=== PATIENT | female | born 1940 | race African-American/Black ===

== ENCOUNTER 2017-08-24 05:03 | Inpatient (IN) | payer OTHER, MEDICARE ==
--- NOTE | 2017-08-24 05:10 | PDOC ---
History of Present Illness - General Chief Complaint: Pain Stated Complaint: PAIN Time Seen by Provider: 08/24/17 05:10 - History of Present Illness Initial Comments: 08/24/17 05:29 Ms. Betts is a 76 yo female w/ pmh of HTN, HL, CAD, DM, CVA with residual left sided weakness, C1-C2 meningioma who presents to the ED with left sided neck pain she reports extends up to the left side of her head. She reports it does not feel like a headache and that she has had similar pain before that was relieved with massage although she reports this is worse. Ms. Betts reports she woke up from sleep with this pain feeling "like she was going to ," although she reports the pain has mostly resolved now. The patient denies chest pain, shortness of breath, headache and dizziness. Denies fever, chills, nausea, vomit, diarrhea and constipation. Denies dysuria, frequency, urgency and hematuria. Allergies: Penicillins, shellfish Past History - Past Medical History Allergies/Adverse Reactions: Allergies Allergy/AdvReac Type Severity Reaction Status Date / Time Penicillins Allergy Swelling Verified 08/24/17 05:06 shellfish derived Allergy Verified 08/24/17 05:06 Home Medications: Ambulatory Orders Amlodipine Besylate [Norvasc -] 10 mg PO DAILY 01/16/14 Aspirin [ASA -] 81 mg PO DAILY tab.chew 04/24/16 Carvedilol [Coreg -] 25 mg PO BID tablet 04/24/16 Ezetimibe [Zetia -] 10 mg PO DAILY tablet 04/24/16 Insulin (Levemir) [Levemir Vial] 30 units SQ ACBK #0 ml 04/24/16 Insulin Sliding Scale [Novolog Vial Sliding Scale -] 1 vial SQ ACHS units 04/24 Levothyroxine [Synthroid -] 125 mcg PO DAILY@0700 tablet 04/24/16 Pantoprazole Sodium [Protonix -] 40 mg PO DAILY tablet.ec 04/24/16 Valsartan [Diovan] 320 mg PO DAILY tablet 04/24/16 Anemia: No Asthma: No Cancer: No Cardiac Disorders: Yes (mi ; 2 stents) CVA: Yes (2001) COPD: No CHF: No Dementia: No Diabetes: Yes Dialysis: Yes GI Disorders: No Disorders: No HTN: Yes Hypercholesterolemia: Yes Liver Disease: No Seizures: No Thyroid Disease: Yes (thyroidectomy 2006) - Surgical History Abdominal Surgery: No Appendectomy: No Cardiac Surgery: Yes (stent placement 2009) Cholecystectomy: No Lung Surgery: No Neurologic Surgery: Yes (meningioma 2001) Orthopedic Surgery: No - Immunization History Immunization Up to Date: Yes - Suicide/Smoking/Psychosocial Hx Smoking History: Never smoked Have you smoked in the past 12 months: No Number of Cigarettes Smoked Daily: 0 Cigars Per Day: 0 Information on smoking cessation initiated: No Hx Alcohol Use: No Drug/Substance Use Hx: No Substance Use Type: None Hx Substance Use Treatment: No Review of Systems - Review of Systems Comments:: 08/24/17 05:33 GENERAL/CONSTITUTIONAL: No fever or chills. HEAD, EYES, EARS, NOSE AND THROAT: No change in vision. No ear pain or discharge. No sore throat. CARDIOVASCULAR: No chest pain or shortness of breath RESPIRATORY: No cough, wheezing, or hemoptysis. GASTROINTESTINAL: No nausea, vomiting, diarrhea or constipation. GENITOURINARY: No dysuria, frequency, or change in urination. MUSCULOSKELETAL: +Left sided neck pain she reports is made worse with her PT exercises. SKIN: No rash NEUROLOGIC: No headache, vertigo, loss of consciousness, or change in strength/ sensation. ENDOCRINE: No increased thirst. No abnormal weight change HEMATOLOGIC/LYMPHATIC: No anemia, easy bleeding, or history of blood clots. ALLERGIC/IMMUNOLOGIC: No hives or skin allergy. *Physical Exam - Vital Signs Last Vital Signs Temp Pulse Resp BP Pulse Ox 97.4 F L 68 18 142/67 98 08/24/17 05:06 08/24/17 05:06 08/24/17 05:06 08/24/17 05:06 08/24/17 05:06 - Physical Exam Comments: 08/24/17 05:35 GENERAL: Awake, alert, and fully oriented, in no acute distress HEAD: No signs of trauma, normocephalic, atraumatic EYES: PERRLA, EOMI, sclera anicteric, conjunctiva clear ENT: Auricles normal inspection, hearing grossly normal, nares patent, oropharynx clear without exudates. Moist mucosa NECK: Normal ROM, no TTP, supple, no lymphadenopathy, JVD, or masses LUNGS: No distress, speaks full sentences, clear to auscultation bilaterally HEART: Regular rate and rhythm, normal S1 and S2, no murmurs, rubs or gallops, peripheral pulses normal and equal bilaterally. ABDOMEN: Soft, nontender, normoactive bowel sounds. No guarding, no rebound. No masses EXTREMITIES: Normal inspection, Normal range of motion, no edema. No clubbing or cyanosis. NEUROLOGICAL: Cranial nerves II through XII grossly intact. Normal speech, no focal sensorimotor deficits SKIN: Warm, Dry, normal turgor, no rashes or lesions noted. ED Treatment Course - LABORATORY CBC & Chemistry Diagram: 08/25/17 07:51 08/25/17 07:51 Medical Decision Making - Medical Decision Making 08/24/17 06:01 Ms. Betts is a 76 yo female w/ pmh as described who presents for acute exacerbation of left neck pain with radiation to head/scalp. With meningioma history CT head/neck ordered for further evaluation. 08/24/17 06:53 Patient signed out to Dr. Marrero for further evaluation. *DC/Admit/Observation/Transfer Diagnosis at time of Disposition: Neck pain, Meningioma - Discharge Dispostion Condition at time of disposition: Guarded Admit: Yes - Referrals - Patient Instructions - Post Discharge Activity
[2017-08-24] MEDS ORDERED: KETOROLAC TROMETHAMINE 60 MG/2 ML VIAL IM ONE (05:43)
[2017-08-24] MEDS ORDERED: KETOROLAC TROMETHAMINE 60 MG/2 ML VIAL ONE (05:51)
--- NOTE | 2017-08-24 06:44 | PDOC ---
Attending Attestation - Resident Resident Name: Crow Zimmerman - ED Attending Attestation I have performed the following: I have examined & evaluated the patient, The case was reviewed & discussed with the resident, I agree w/resident's findings & plan - HPI HPI: 08/24/17 06:43 Pt comes with headache and neck pain. She is anxious and wants to make sure she is not having any pathology. - Physicial Exam PE: 08/25/17 02:58 Agree with resident exam - Medical Decision Making 08/25/17 02:58 Pt's exam and head CT are normal. She will be discharged.
--- NOTE | 2017-08-24 07:06 | PDOC ---
*Physical Exam - Vital Signs Last Vital Signs Temp Pulse Resp BP Pulse Ox 97.4 F L 68 18 142/67 98 08/24/17 05:06 08/24/17 05:06 08/24/17 05:06 08/24/17 05:06 08/24/17 05:06 08/24/17 07:05 76 YOF with h/o CVA and left sided residual weakness, known C1-C2 meningioma with attempted resection, p/w neck pain and expressed concern over the meningioma possibly being the cause. CT head/neck ordered, dispo pending result. ED Treatment Course - Medications Given in the ED: ED Medications Discontinued Medications Generic Name Dose Route Start Last Admin Trade Name Freq PRN Reason Stop Dose Admin Ketorolac Tromethamine 60 mg 08/24/17 05:43 08/24/17 05:58 Toradol Injection - IM 08/24/17 05:44 60 mg ONCE ONE Administration Medical Decision Making - Medical Decision Making 08/24/17 09:[address] Moore who will admit the patient, Med/Surg obs. Requests consult with Dr. Vaca (patient's neurosurgeon). Call placed to Dr. Vaca. Admission order placed. 08/24/17 10:[address] Vaca who agrees to see the patient while admitted. *DC/Admit/Observation/Transfer Diagnosis at time of Disposition: Neck pain, Meningioma - Discharge Dispostion Condition at time of disposition: Guarded Admit: Yes - Referrals Referrals: Tito Moore MD [Primary Care Provider] - - Patient Instructions - Post Discharge Activity
--- NOTE | 2017-08-24 10:23 | PN ---
Progress Note (short form) - Note Progress Note: NEUROSURGERY CONSULT DICTATED Pt well known to me at bedside in ED Asked by Dr Moore to see patient S/p laminectomies and debulking, followed by reattempted re-resection for recurrence years ago. Dense calcified adherent tumor precluded re-attempted resection. S/p post-op XRT. Also L parietal parafalcine meningioma s/p SRS. C/o 9 hrs h/o increasing L neck/posterior head/shoulder pain; pain better s/p meds Chronic L hemiparesis PE: AF, VSS HEENT- NC/AT; Neck- supple (improved ROM since meds); mild tenderness L paraspinal region and trapezius; Cor- RR; Lungs- CTA; Abd- benign; Ext- no sign of DVT, L hand clawed (chronic) CN- intact; Motor- R side 5/5 L shoulder 2-3, L arm 3-4-; L hand 3; L IP 3/5; distal L LE 4; Sensation- intact LT except decreased L UE; DTR- hyporeflexia, no long tract sign Head CT- calcified L parafalcine parietal meningioma; no significant edema C spine CT- laminectomy defect C1-3; L ant C1-2 calcified meningioma Likely exacerbation of symptoms from calcified residual/recurrent L C1-2 anterior meningioma No significant changes c/w prior C spine and Brain MRI frmo 12/2016 Neurontin 100 mg tid for neuropathic pain Mobilize DVT prophylaxis Short pulse of oral medrol 4 mg qid might help with symptoms though IDDM makes such regimen more problematic Above d/w patient and
[2017-08-24] MEDS: CARVEDILOL 25 MG TABLET (FP) PO SCH ×2 (10:28→21:46)
[2017-08-24] MEDS: ASPIRIN 81 MG CHEWABLE TABLETS PO SCH (10:28)
[2017-08-24] MEDS: amLODIPine BESYLATE 10 MG TABLET (FP) PO SCH (10:28)
[2017-08-24] MEDS: VALSARTAN 160 MG TABLET (UD) PO SCH (10:28)
[2017-08-24] MEDS: PANTOPRAZOLE 40 MG TABLET (FP) PO SCH (10:28)
[2017-08-24] MEDS: EZETIMIBE 10 MG TABLET (FP) PO SCH (10:29)
[2017-08-24] MEDS ORDERED: INSULIN SLIDING SCALE (NOVOLOG) 1 VIAL SQ SCH ×2 (11:00→22:00)
[2017-08-24] MEDS ORDERED: GABAPENTIN 100 MG CAPSULE (FP) ONE (14:35)
[2017-08-24] MEDS: GABAPENTIN 100 MG CAPSULE (FP) PO SCH ×2 (14:35→21:46)
[2017-08-24 15:56] VITALS: BMI 33.7
[2017-08-24] MEDS ORDERED: traMADol HCL 50 MG TABLET PO PRN (16:56)
--- NOTE | 2017-08-24 17:03 | PN ---
Progress Note, Physician Chief Complaint: Neck pain History of Present Illness: 76 yrs old F with H/o HTN, T2DM on Insulin, Hypercholesterolemia, Left Parietal parafalacine meningioma s/p resection and dense calcified meningioma, CVA Left sided Hemiparesis UE > LE able to ambulate with a cane present to Ed with sudden onset severe Left sided neck pain 04/22, sharp aggraates with neck movement so came to Ed for evaluation, in the Ed revived pain medications CT haed and C spine CT- laminectomy defect C1-3; L ant C1-2 calcified meningioma patient pain improved after pain medications, considering - Current Medication List Current Medications: Active Medications Amlodipine Besylate (Norvasc -) 10 mg PO DAILY [facility] Last Admin: 08/24/17 10:28 Dose: 10 mg Aspirin (Asa -) 81 mg PO DAILY [facility] Last Admin: 08/24/17 10:28 Dose: 81 mg Carvedilol (Coreg -) 25 mg PO BID [facility] Last Admin: 08/24/17 10:28 Dose: 25 mg Ezetimibe (Zetia -) 10 mg PO DAILY [facility] Last Admin: 08/24/17 10:29 Dose: 10 mg Gabapentin (Neurontin -) 100 mg PO TID [facility] Last Admin: 08/24/17 14:35 Dose: 100 mg Insulin Aspart (Novolog Vial Sliding Scale -) 1 vial SQ ACHS [facility] PRN Reason: Protocol Last Admin: 08/24/17 11:36 Dose: Not Given Insulin Detemir (Levemir Vial) 30 units SQ ACBK [facility] Levothyroxine Sodium (Synthroid -) 125 mcg PO DAILY@0700 [facility] Pantoprazole Sodium (Protonix -) 40 mg PO DAILY [facility] Last Admin: 08/24/17 10:28 Dose: 40 mg Tramadol HCl (Ultram -) 25 mg PO Q8H PRN PRN Reason: PAIN LEVEL 6-10 Valsartan (Diovan -) 320 mg PO DAILY [facility] Last Admin: 08/24/17 10:28 Dose: 320 mg - Objective Vital Signs: Vital Signs Temperature 97.8 F 08/24/17 10:41 Pulse Rate 75 08/24/17 14:39 Respiratory Rate 16 08/24/17 14:39 Blood Pressure 124/59 08/24/17 14:39 O2 Sat by Pulse Oximetry (%) 98 08/24/17 14:39 Elderly F not in distress pain improved after medications HEENT: s/p craniotomy in the past, weakness UE> LE, Left facial droop at abse line.Mm moist, no anemia, PERRLA, EOMI NECK: supple mid pain on passive movement CHEST: CTA B/L CVS; S1S2 R no m/g/r ABD: No distention, non tender Bs + EXT: No brandt afeet, no calf tenderness COMPUTER INSTRUCTOR: AOX3 at base line Left sided,no facial droop Problem List - Problems (1) Neck pain Assessment/Plan: Most likely radiculopathy improved with pain meds evaluted by Neuro surgery consult Code(s): M54.2 - CERVICALGIA (2) T2DM (type 2 diabetes mellitus) Assessment/Plan: Hold Oral meds cont Lantus and correction dose insulin, Daibetic Diet F/U HbA1C level Code(s): E11.9 - TYPE 2 DIABETES MELLITUS WITHOUT COMPLICATIONS (3) Hypertensive cardiovascular disease Assessment/Plan: Cont current BP meds BP is well controlled Code(s): I11.9 - HYPERTENSIVE HEART DISEASE WITHOUT HEART FAILURE Qualifiers: Heart failure presence: without heart failure Qualified Code(s): I11.9 - Hypertensive heart disease without heart failure (4) Meningioma Assessment/Plan: H/O Meningiom s/p resection F/U Neuro Surgery recommendations. Code(s): D32.9 - BENIGN NEOPLASM OF MENINGES, UNSPECIFIED (5) Hyperlipidemia associated with type 2 diabetes mellitus Assessment/Plan: Cont current therapy F/U Lipid panel and TSH Code(s): E11.69 - TYPE 2 DIABETES MELLITUS WITH OTHER SPECIFIED COMPLICATION; E78.5 - HYPERLIPIDEMIA, UNSPECIFIED
--- NOTE | 2017-08-24 17:44 | CONS ---
DATE OF CONSULTATION: 08/24/2017 REQUESTING PHYSICIAN: Tito Moore MD BOWLING BALL MOLDER: Hussein Calvillo MD CHIEF COMPLAINT: Increasing left neck and head and shoulder pain. HISTORY OF PRESENT ILLNESS: The patient is a 76-year-old right-handed female with history of C1-2 anterior calcified meningioma and left parietal parafalcine meningioma, hypertension, coronary artery disease, diabetes, and cerebrovascular disease, with residual left hemiparesis, who presented with increasing left-sided neck pain since about 1 o'clock this morning. The pain radiates up to the head and down to her left shoulder and trapezius. She has had pain similar previously, but the pain is worse since earlier this morning. She denies increasing weakness or numbness even though she has chronic numbness in left arm and chronic weakness in her left arm and leg. She has no nausea or vomiting. She denies chest pain or shortness of breath or increasing edema in lower extremities. Her past medical history is significant for diabetes, coronary artery disease, hypertension, hypercholesterolemia, cerebrovascular disease, left C1- anterior calcified meningioma and left parietal parafalcine meningioma. Medications include Norvasc, baby aspirin, Coreg, Zetia, Levemir, Synthroid, Protonix, and Diovan. Allergies to PENICILLIN and SHELLFISH. SOCIAL HISTORY: She does not smoke or drink. 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 She does not smoke or drink. Review of systems is otherwise negative for other major constitutional, head and neck, cardiovascular, pulmonary, gastrointestinal, genitourinary, endocrinological, neurological, or psychological problem except for the above. PHYSICAL EXAMINATION: Vital Signs: She is afebrile and the vital signs are stable. General: She is reasonably comfortable in the stretcher in the emergency room. HEENT: Normocephalic, atraumatic. Anicteric. Neck: Supple. Posterior cervical incision is well healed. Range of motion improved compared to what was reported earlier. Coronary: Regular rhythm. Lungs: Clear bilaterally. Abdomen: Benign. Extremities: No obvious signs of DVT. She has some clawing of the left hand, which is chronic for at least 1 year also, if not longer. Neurologic: She is awake and alert, oriented x4. Cranial nerves examination is intact, 2-12. Motor examination shows 5/5 strength in the right side. Left deltoid and supraspinatus strength of 2 to 3/5 and biceps is 2 to 4-/5. Left hand intrinsic muscles are 3/5. Triceps is 4-/5. Left iliopsoas is 3/5 and the distal left lower extremity is 4/5. Sensory examination demonstrates diminished sensation in the left upper extremity in the non-dermatomal fashion. Deep tendon reflexes are hyporeflexive. There are no pathological lower tract findings. Laboratory examination shows the glucose to be 139. CT scan of the head demonstrated a stable-appearing 1.5 x 1 cm left parietal parafalcine calcified meningioma with no associated edema or significant mass effect. There is no acute bleed or large territorial infarct. CT scan of cervical spine demonstrated anterior calcified C1-2 lesion consistent with the prior meningioma. There is evidence of laminectomy previously. When compared to MRI from December 2016, there is no significant change. IMPRESSION: 1. Residual/recurrent left anterior C1-2 calcified/fibrotic meningioma. 2. Left parietal parafalcine meningioma, calcified. 3. Hypertension/coronary artery disease. 4. History of cerebrovascular disease. 5. Diabetes. 6. Hypothyroidism. 7. Hypercholesterolemia. RECOMMENDATIONS: The patient has a left C1-2 anterior epidural tumor, which was a calcified meningioma. She has undergone resection twice; however, there is residual tumor. Her neurological status has deteriorated somewhat through the years. She did have 1 episode of severe exacerbation about 1 year earlier and she underwent rehabilitation at that time. She currently has antigravity strength in her left upper and lower extremity, but she certainly has residual weakness and numbness. No neurosurgical intervention could be safely considered, given her history of highly fibrotic and calcified tumor which is anterior to the spinal cord at the C1-2 level on the left side. No neurosurgical intervention is recommended. Perhaps a short course of steroid could be considered, such as Medrol 4 mg 4 times a day, however, she is diabetic, and that certainly would increase her risk of hyperglycemia. I also took the liberty of putting her on gabapentin 100 mg p.o. t.i.d. for treatment of her neuropathic pain. The above was discussed with patient and her at the bedside in the emergency room. HUSSEIN CALVILLO M.D. VARGHESE/[id number]
[2017-08-24] MEDS ORDERED: ACETAMINOPHEN 500 MG TABLET (FP) PO PRN (20:23)
[2017-08-25] MEDS ORDERED: PT OWN MED DRAWER 7, Y5N ONE ×2 (06:02→10:22)
[2017-08-25] MEDS: LEVOTHYROXINE NA 125 MCG TABLET (FP) PO SCH (06:03)
[2017-08-25] MEDS: GABAPENTIN 100 MG CAPSULE (FP) PO SCH ×3 (06:03→21:10)
[2017-08-25] MEDS: INSULIN SLIDING SCALE (NOVOLOG) 1 VIAL SQ SCH ×3 (06:32→16:11)
[2017-08-25] MEDS: INSULIN DETEMIR 100 UNITS/ML MDV SQ SCH (06:36)
[2017-08-25 08:02] LABS: BASO % 0.6 % (0-2.0); EOS % 3.7 % (0-4.5); HEMATOCRIT 32.1 % (32.4-45.2); HEMOGLOBIN 10.4 GM/dL (10.7-15.3); LYMPH % 39.7 % (8-40); MCH 27.6 pg (25.7-33.7); MCHC 32.2 g/dl (32.0-36.0); MEAN CELL VOLUME 85.5 fl (80-96); MEAN PLT VOLUME 7.5 fl (7.5-11.1); MONO % 9.7 % (3.8-10.2); NEUT % 46.3 % (42.8-82.8); PLATELET COUNT 199 K/MM3 (134-434); RBC 3.76 M/mm3 (3.60-5.2); RDW 13.9 % (11.6-15.6); WHITE BLOOD COUNT 3.1 K/mm3 (4.0-10.0)
[2017-08-25 08:40] LABS: ANION GAP 4 (8-16); BLOOD UREA NITROGEN 27 mg/dL (7-18); CALCIUM 8.5 mg/dL (8.5-10.1); CHLORIDE 109 mmol/L (98-107); CO2 29 mmol/L (21-32); CREATININE 1.3 mg/dL (0.55-1.02); GLUCOSE,RANDOM 147 mg/dL (74-106); POTASSIUM 4.2 mmol/L (3.5-5.1); SODIUM 142 mmol/L (136-145)
[2017-08-25] MEDS: PANTOPRAZOLE 40 MG TABLET (FP) PO SCH (10:34)
[2017-08-25] MEDS: ASPIRIN 81 MG CHEWABLE TABLETS PO SCH (10:34)
[2017-08-25] MEDS: CARVEDILOL 25 MG TABLET (FP) PO SCH ×2 (10:34→21:10)
[2017-08-25] MEDS: EZETIMIBE 10 MG TABLET (FP) PO SCH (10:35)
[2017-08-25] MEDS: amLODIPine BESYLATE 10 MG TABLET (FP) PO SCH (10:35)
[2017-08-25] MEDS: VALSARTAN 160 MG TABLET (UD) PO SCH (10:35)
[2017-08-25] MEDS: methylPREDNISolone 2 MG TABLET PO SCH ×3 (10:38→18:41)
[2017-08-25] MEDS ORDERED: INSULIN (NOVOLOG) ASPART 100 UNITS/ML 10ML VIAL ONE ×2 (10:50→16:06)
--- NOTE | 2017-08-25 12:00 | HP ---
DATE OF ADMISSION: HISTORY: This is a 76-year-old female who came to the emergency room yesterday morning with complaints of increasing left shoulder pain and weakness left upper extremity. She is status post laminectomy and debulking of the meningioma. The first time she had it about 10 years ago, and recently last year another debulking of the meningioma was done by Dr. Vaca. She has a dense tumor in the posterior fossa involving C1-C2. The patient is also known to have diabetes, hypertension. Her blood sugar was recently under good control. Today, she states her pain is better. The patient was seen by Dr. Vaca and advised to continue present medications plus Solu-Medrol. PHYSICAL EXAMINATION: Vital Signs: On examination today, her blood pressure is 140/60, respirations 20, temperature 98, pulse 72. HEENT: Unremarkable. Lungs: Clear. Heart: S1, S2 normal. No S3, S4. Abdomen: Soft. Extremities: Legs, no edema. Neurologic: The patient has paresis on the left side. She can barely move her left upper extremity. Power is 3/5. Right side is normal. LABORATORY REPORTS: WBC 3.1, hemoglobin 10.4, hematocrit 32, platelets 199. Chemistry: Sodium 142, potassium 4.2, chloride 109, CO2 is 29, BUN 27, creatinine 1.3. CT of the head: No acute intracranial hemorrhage. Calcified posterior left meningioma. No change compared to January 03, 2017. CT of the neck: No fracture. Status post thyroidectomy and C2-C3 compression laminectomies and posterior ill-defined intradural mass at the level of C1-C2. PLAN: Continue her present medication. Add Solu-Medrol. We will observe the changes in the blood sugar. FINAL DIAGNOSES: 1. Diabetes. 2. Paracervical meningioma. Yvonne [id number]
--- NOTE | 2017-08-25 23:29 | EKG ---
Test Reason : Blood Pressure : / mmHG Vent. Rate : 071 BPM Atrial Rate : 071 BPM P-R Int : 190 ms QRS Dur : 120 ms QT Int : 406 ms P-R-T Axes : 050 -10 005 degrees QTc Int : 441 ms NORMAL SINUS RHYTHM LEFT VENTRICULAR HYPERTROPHY WITH QRS WIDENING INFERIOR INFARCT (CITED ON OR BEFORE 17-JAN-2014) ABNORMAL ECG WHEN COMPARED WITH ECG OF 15-APR-2016 09:33, NO SIGNIFICANT CHANGE WAS FOUND Confirmed by INO TAVARES MD ([id number]) on 08/25/2017 11:29:11 PM Referred By: Confirmed By:INO TAVARES MD
[2017-08-26] MEDS ORDERED: PT OWN MED DRAWER 7, Y5N ONE ×3 (00:05→11:47)
[2017-08-26] MEDS: methylPREDNISolone 2 MG TABLET PO SCH ×4 (00:07→17:03)
[2017-08-26] MEDS: INSULIN SLIDING SCALE (NOVOLOG) 1 VIAL SQ SCH ×3 (06:34→17:02)
[2017-08-26] MEDS: INSULIN DETEMIR 100 UNITS/ML MDV SQ SCH (06:34)
[2017-08-26] MEDS: GABAPENTIN 100 MG CAPSULE (FP) PO SCH ×3 (06:35→21:31)
[2017-08-26] MEDS: LEVOTHYROXINE NA 125 MCG TABLET (FP) PO SCH (06:35)
[2017-08-26] MEDS ORDERED: INSULIN (NOVOLOG) ASPART 100 UNITS/ML 10ML VIAL ONE ×3 (06:44→16:54)
--- NOTE | 2017-08-26 07:52 | PN ---
Progress Note (short form) - Note Progress Note: NEUROSURGERY L neck/posterior head/shoulder pain better On medrol and Neurontin Chronic L hemiparesis PE: AF, VSS HEENT- NC/AT; Neck- supple (improved ROM since meds); mild tenderness L paraspinal region and trapezius; Cor- RR; Lungs- CTA; Abd- benign; Ext- no sign of DVT, L hand clawed (chronic) CN- intact; Motor- R side 5/5 L shoulder 2-3, L bicpes 3; L hand 3; L triceps 4 ; L hand 2-3; L IP 3/5; L DF 4-; L PF 4; Sensation- intact LT except decreased L UE; DTR- hyporeflexia, no long tract sign Head CT- calcified L parafalcine parietal meningioma; no significant edema C spine CT- laminectomy defect C1-3; L anterior C1-2 calcified meningioma Likely exacerbation of symptoms from calcified residual/recurrent L C1-2 anterior meningioma No significant changes c/w prior C spine and Brain MRI frmo 12/2016 Cont Neurontin 100 mg tid for neuropathic pain Mobilize/PT/OOB DVT prophylaxis Taper medrol staring tomorrow over about 10 days to off
--- NOTE | 2017-08-26 09:04 | DS ---
Physical Examination Vital Signs: Vital Signs Temperature 97.8 F 08/26/17 08:31 Pulse Rate 74 08/26/17 08:31 Respiratory Rate 18 08/26/17 08:31 Blood Pressure 140/64 08/26/17 08:31 O2 Sat by Pulse Oximetry (%) 98 08/25/17 21:00 Constitutional: Yes: Well Nourished, No Distress, Calm Eyes: Yes: WNL, Conjunctiva Clear, EOM Intact HENT: Yes: WNL, Atraumatic, Normocephalic Neck: Yes: WNL, Supple, Trachea Midline Cardiovascular: Yes: WNL, Regular Rate and Rhythm Respiratory: Yes: WNL, Regular, CTA Bilaterally Gastrointestinal: Yes: WNL, Normal Bowel Sounds ...Rectal Exam: Yes: WNL Renal/: Yes: WNL Musculoskeletal: Yes: WNL, Muscle Weakness Extremities: Yes: WNL Edema: No Peripheral Pulses WNL: Yes Integumentary: Yes: WNL Neurological: Yes: WNL, Alert, Oriented, Pre-Existing Deficit ...Motor Strength: WNL Psychiatric: Yes: WNL Labs: CBC, BMP 08/25/17 07:51 08/25/17 07:51 Discharge Summary Reason For Visit: MENINGIOMA/NECK PAIN Current Active Problems Meningioma (Acute) Neck pain (Acute) T2DM (type 2 diabetes mellitus) (Acute) Condition: Guarded - Instructions Referrals: Tito Moore MD [Primary Care Provider] - - Home Medications Comprehensive Discharge Medication List: Ambulatory Orders Amlodipine Besylate [Norvasc -] 10 mg PO DAILY 01/16/14 Aspirin [ASA -] 81 mg PO DAILY tab.chew 04/24/16 Carvedilol [Coreg -] 25 mg PO BID tablet 04/24/16 Ezetimibe [Zetia -] 10 mg PO DAILY tablet 04/24/16 Insulin (Levemir) [Levemir Vial] 30 units SQ ACBK #0 ml 04/24/16 Insulin Sliding Scale [Novolog Vial Sliding Scale -] 1 vial SQ ACHS units 04/24 Levothyroxine [Synthroid -] 125 mcg PO DAILY@0700 tablet 04/24/16 Pantoprazole Sodium [Protonix -] 40 mg PO DAILY tablet.ec 04/24/16 Valsartan [Diovan] 320 mg PO DAILY tablet 04/24/16
[2017-08-26] MEDS: CARVEDILOL 25 MG TABLET (FP) PO SCH ×2 (10:11→21:31)
[2017-08-26] MEDS: PANTOPRAZOLE 40 MG TABLET (FP) PO SCH (10:12)
[2017-08-26] MEDS: amLODIPine BESYLATE 10 MG TABLET (FP) PO SCH (10:12)
[2017-08-26] MEDS: VALSARTAN 160 MG TABLET (UD) PO SCH (10:12)
[2017-08-26] MEDS: ASPIRIN 81 MG CHEWABLE TABLETS PO SCH (10:13)
[2017-08-26] MEDS: EZETIMIBE 10 MG TABLET (FP) PO SCH (10:17)
[2017-08-27] MEDS: methylPREDNISolone 2 MG TABLET PO SCH ×4 (00:05→18:33)
[2017-08-27] MEDS: GABAPENTIN 100 MG CAPSULE (FP) PO SCH ×3 (06:11→21:39)
[2017-08-27] MEDS: INSULIN DETEMIR 100 UNITS/ML MDV SQ SCH (06:12)
[2017-08-27] MEDS: INSULIN SLIDING SCALE (NOVOLOG) 1 VIAL SQ SCH ×3 (06:13→16:39)
[2017-08-27] MEDS: LEVOTHYROXINE NA 125 MCG TABLET (FP) PO SCH (06:14)
--- NOTE | 2017-08-27 09:03 | PN ---
Progress Note, Physician Chief Complaint: Feels better - Current Medication List Current Medications: Active Medications Acetaminophen (Tylenol -) 500 mg PO Q6H PRN PRN Reason: PAIN Last Admin: 08/26/17 10:11 Dose: 500 mg Amlodipine Besylate (Norvasc -) 10 mg PO DAILY [facility] Last Admin: 08/26/17 10:12 Dose: 10 mg Aspirin (Asa -) 81 mg PO DAILY [facility] Last Admin: 08/26/17 10:13 Dose: 81 mg Carvedilol (Coreg -) 25 mg PO BID [facility] Last Admin: 08/26/17 21:31 Dose: 25 mg Ezetimibe (Zetia -) 10 mg PO DAILY [facility] Last Admin: 08/26/17 10:17 Dose: 10 mg Gabapentin (Neurontin -) 100 mg PO TID [facility] Last Admin: 08/27/17 06:11 Dose: 100 mg Insulin Aspart (Novolog Vial Sliding Scale -) 1 vial SQ TIDAC [facility] PRN Reason: Protocol Last Admin: 08/27/17 06:13 Dose: 4 units Insulin Detemir (Levemir Vial) 30 units SQ ACBK [facility] Last Admin: 08/27/17 06:12 Dose: 30 unit Levothyroxine Sodium (Synthroid -) 125 mcg PO DAILY@0700 [facility] Last Admin: 08/27/17 06:14 Dose: 125 mcg Methylprednisolone (Medrol -) 4 mg PO Q6HPO [facility] Last Admin: 08/27/17 06:11 Dose: 4 mg Pantoprazole Sodium (Protonix -) 40 mg PO DAILY [facility] Last Admin: 08/26/17 10:12 Dose: 40 mg Tramadol HCl (Ultram -) 25 mg PO Q8H PRN PRN Reason: PAIN LEVEL 6-10 Valsartan (Diovan -) 320 mg PO DAILY [facility] Last Admin: 08/26/17 10:12 Dose: 320 mg - Objective Vital Signs: Vital Signs Temperature 97.9 F 08/27/17 06:00 Pulse Rate 73 08/27/17 06:00 Respiratory Rate 20 08/27/17 06:00 Blood Pressure 155/62 08/27/17 06:00 O2 Sat by Pulse Oximetry (%) 98 08/26/17 21:00 Constitutional: Yes: Calm Eyes: Yes: WNL HENT: Yes: WNL Neck: Yes: WNL Cardiovascular: Yes: WNL Respiratory: Yes: WNL Gastrointestinal: Yes: WNL ...Rectal Exam: Yes: Deferred Genitourinary: Yes: WNL Breast(s): Yes: WNL Musculoskeletal: Yes: Muscle Weakness Edema: No Peripheral Pulses WNL: Yes Integumentary: Yes: WNL Neurological: Yes: Pre-Existing Deficit Psychiatric: Yes: Alert Labs: CBC, BMP 08/25/17 07:51 08/25/17 07:51 Assessment/Plan SNF/ rehab placement
[2017-08-27] MEDS ORDERED: PT OWN MED DRAWER 7, Y5N ONE ×2 (11:12→18:22)
[2017-08-27] MEDS: amLODIPine BESYLATE 10 MG TABLET (FP) PO SCH (11:20)
[2017-08-27] MEDS: CARVEDILOL 25 MG TABLET (FP) PO SCH ×2 (11:20→21:39)
[2017-08-27] MEDS: PANTOPRAZOLE 40 MG TABLET (FP) PO SCH (11:20)
[2017-08-27] MEDS: VALSARTAN 160 MG TABLET (UD) PO SCH (11:20)
[2017-08-27] MEDS: ASPIRIN 81 MG CHEWABLE TABLETS PO SCH (11:20)
[2017-08-27] MEDS: EZETIMIBE 10 MG TABLET (FP) PO SCH (11:23)
[2017-08-28] MEDS: methylPREDNISolone 2 MG TABLET PO SCH ×2 (00:20→06:04)
[2017-08-28 05:55] VITALS: TEMP 97.9
[2017-08-28] MEDS: INSULIN SLIDING SCALE (NOVOLOG) 1 VIAL SQ SCH ×2 (06:03→12:24)
[2017-08-28] MEDS: GABAPENTIN 100 MG CAPSULE (FP) PO SCH (06:03)
[2017-08-28] MEDS: INSULIN DETEMIR 100 UNITS/ML MDV SQ SCH (06:03)
[2017-08-28] MEDS: LEVOTHYROXINE NA 125 MCG TABLET (FP) PO SCH (06:06)
--- NOTE | 2017-08-28 09:06 | PN ---
Progress Note, Physician Chief Complaint: Could not stand up History of Present Illness: [facility] refused may go to [facility] - Current Medication List Current Medications: Active Medications Acetaminophen (Tylenol -) 500 mg PO Q6H PRN PRN Reason: PAIN Last Admin: 08/26/17 10:11 Dose: 500 mg Amlodipine Besylate (Norvasc -) 10 mg PO DAILY [facility] Last Admin: 08/27/17 11:20 Dose: 10 mg Aspirin (Asa -) 81 mg PO DAILY [facility] Last Admin: 08/27/17 11:20 Dose: 81 mg Carvedilol (Coreg -) 25 mg PO BID [facility] Last Admin: 08/27/17 21:39 Dose: 25 mg Ezetimibe (Zetia -) 10 mg PO DAILY [facility] Last Admin: 08/27/17 11:23 Dose: 10 mg Gabapentin (Neurontin -) 100 mg PO TID [facility] Last Admin: 08/28/17 06:03 Dose: 100 mg Insulin Aspart (Novolog Vial Sliding Scale -) 1 vial SQ TIDAC [facility] PRN Reason: Protocol Last Admin: 08/28/17 06:03 Dose: 12 units Insulin Detemir (Levemir Vial) 30 units SQ ACBK [facility] Last Admin: 08/28/17 06:03 Dose: 30 unit Levothyroxine Sodium (Synthroid -) 125 mcg PO DAILY@0700 [facility] Last Admin: 08/28/17 06:06 Dose: 125 mcg Methylprednisolone (Medrol -) 4 mg PO Q6HPO [facility] Last Admin: 08/28/17 06:04 Dose: 4 mg Pantoprazole Sodium (Protonix -) 40 mg PO DAILY [facility] Last Admin: 08/27/17 11:20 Dose: 40 mg Tramadol HCl (Ultram -) 25 mg PO Q8H PRN PRN Reason: PAIN LEVEL 6-10 Valsartan (Diovan -) 320 mg PO DAILY [facility] Last Admin: 08/27/17 11:20 Dose: 320 mg - Objective Vital Signs: Vital Signs Temperature 97.9 F 08/28/17 05:30 Pulse Rate 66 08/28/17 05:30 Respiratory Rate 16 08/28/17 05:30 Blood Pressure 161/66 08/28/17 05:30 O2 Sat by Pulse Oximetry (%) 98 08/27/17 21:00 Constitutional: Yes: No Distress Eyes: Yes: WNL HENT: Yes: WNL Neck: Yes: WNL Cardiovascular: Yes: WNL Respiratory: Yes: WNL Gastrointestinal: Yes: WNL ...Rectal Exam: Yes: WNL, Deferred Edema: No Neurological: Yes: Pre-Existing Deficit Labs: CBC, BMP 08/25/17 07:51 08/25/17 07:51 Assessment/Plan Sugar running high Will increase insulin
[2017-08-28] MEDS ORDERED: PT OWN MED DRAWER 7, Y5N ONE (10:07)
[2017-08-28] MEDS: VALSARTAN 160 MG TABLET (UD) PO SCH (10:11)
[2017-08-28] MEDS: ASPIRIN 81 MG CHEWABLE TABLETS PO SCH (10:11)
[2017-08-28] MEDS: amLODIPine BESYLATE 10 MG TABLET (FP) PO SCH (10:11)
[2017-08-28] MEDS: CARVEDILOL 25 MG TABLET (FP) PO SCH (10:12)
[2017-08-28] MEDS: PANTOPRAZOLE 40 MG TABLET (FP) PO SCH (10:12)
[2017-08-28] MEDS: EZETIMIBE 10 MG TABLET (FP) PO SCH (10:12)
[2017-08-28 10:48] VITALS: BP 141/52; PULSE 63
[2017-08-29] MEDS ORDERED: INSULIN DETEMIR 100 UNITS/ML MDV SQ SCH (07:00)
== END 2017-08-28 12:45 | DRG 55 ==
LOC: JER 05:03 → JERBED 09:36 → J6S 15:22 → OBSVTOIN 08-25 09:01
PROVIDERS: ADMIT Internal Medicine; ATTEND Internal Medicine
DX: D32.9 Benign neoplasm of meninges, unspecified (principal); I69.354 Hemiplegia and hemiparesis following cerebral infarction affecting left non-dominant side; M54.2 Cervicalgia; E11.9 Type 2 diabetes mellitus without complications; I11.9 Hypertensive heart disease without heart failure; E78.5 Hyperlipidemia, unspecified; Z79.4 Long term (current) use of insulin
CPT/HCPCS: 36415; 70450-TC; 72125-TC; 80048; 82962; 84443; 85025; 93005; 93010; 97116-GP; 97161-GP; 99284-25; G0378

== ENCOUNTER 2024-02-06 10:22 | Emergency (ER) | payer OTHER ==
[2024-02-06 10:29] VITALS: BP 187/64; PULSE 62; RESP 18; TEMP 98.3; BMI 30.2
[2024-02-06 12:30] LABS: BASO % 0.6 % (0-2.0); EOS % 2.6 % (0-4.5); HEMATOCRIT 34.4 % (32.4-45.2); HEMOGLOBIN 11.5 GM/dL (10.7-15.3); LYMPH % 34.3 % (8-40); MCH 29.9 pg (25.7-33.7); MCHC 33.4 g/dl (32.0-36.0); MEAN CELL VOLUME 89.4 fl (80-96); MEAN PLT VOLUME 9.2 fl (7.5-11.1); MONO % 9.8 % (3.8-10.2); NEUT % 52.7 % (42.8-82.8); PLATELET COUNT 132 10^3/uL (134-434); RBC 3.85 M/mm3 (3.60-5.2); RDW 14.9 % (11.6-15.6); WHITE BLOOD COUNT 2.8 K/mm3 (4.0-10.0)
[2024-02-06 12:37] LABS: INR 0.94 (0.83-1.09); PROTHROMBIN TIME (PATIENT) 10.8 SEC (9.7-13.0)
[2024-02-06 12:39] LABS: ACTIVATED PTT 26.9 SECONDS (25.2-36.5)
[2024-02-06 12:43] LABS: EPI CELLS 2 /uL (0-25.1); HYALINE CASTS 0 /uL (0-3.1); URINE APPEARANCE CLEAR; URINE BACTERIA 8 /uL (0-1359); URINE BILIRUBIN NEGATIVE (NEGATIVE); URINE COLOR YELLOW; URINE GLUCOSE (UA) NEGATIVE (NEGATIVE); URINE KETONE NEGATIVE (NEGATIVE); URINE LEUK ESTERASE NEGATIVE (NEGATIVE); URINE NITRITE NEGATIVE (NEGATIVE); URINE PROTEIN 1+ (NEGATIVE); URINE RBC 16 /uL (0-23.9); URINE UROBILINOGEN 0.2 mg/dL (0.2-1.0); URINE WBC 3 /uL (0-25.8)
[2024-02-06 12:56] LABS: POTASSIUM 4.5 mmol/L (3.5-5.1)
[2024-02-06 12:58] LABS: ALBUMIN 2.7 g/dl (3.4-5.0)
[2024-02-06 13:02] LABS: CREATININE 1.5 mg/dL (0.55-1.3)
[2024-02-06 13:03] LABS: BILIRUBIN,TOTAL 0.2 mg/dL (0.2-1)
[2024-02-06] MEDS ORDERED: LIDOCAINE 4% PATCH TP ONE ×2 (16:42→16:52)
[2024-02-06] MEDS: LIDOCAINE 4% PATCH TP ONE (16:53)
[2024-02-06] MEDS ORDERED: LIDOCAINE PATCH REMOVAL MC SCH (22:00)
== END 2024-02-06 16:53 | disposition home or self-care (01) ==
LOC: JER 10:22
DX: R53.1 Weakness (principal); M51.36 Other intervertebral disc degeneration, lumbar region; Z20.822 Contact with and (suspected) exposure to COVID-19
CPT/HCPCS: 0241U-QW; 36415; 70450-TC; 72131-TC; 80053; 81003; 83735; 84484; 85025; 85610; 85730; 87086; 93005; 93010; 99285-25